=== PATIENT | female | born 1990 | race African-American/Black ===

== ENCOUNTER 2019-05-11 14:53 | Inpatient (IN) | payer OTHER ==
[2019-05-11 18:04] VITALS: BMI 40.3
--- NOTE | 2019-05-11 20:37 | HP ---
CIWA Score Nausea/Vomitin Muscle Tremors: 4-Moderate,w/Arms Extend Anxiety: 4-Mod. Anxious/Guarded Agitation: 4-Moderately Restless Paroxysmal Sweats: 3 Orientation: 0-Oriented Tacttile Disturbances: 3-Moderate Itch/Numb/Burn (ble- numbness) Auditory Disturbances: 0-None Visual Disturbances: 3-Moderate Sensitivity (to light) Headache: 0-None Present CIWA-Ar Total Score: 23 - Admission Criteria OASAS Guidelines: Admission for Medically Managed Detox: Requires at least one of the followin. CIWA greater than 12 2. Seizures within the past 24 hours 3. Delirium tremens within the past 24 hours 4. Hallucinations within the past 24 hours 5. Acute intervention needed for co occurring medical disorder 6. Acute intervention needed for co occurring psychiatric disorder 7. Severe withdrawal that cannot be handled at a lower level of care (continued vomiting, continued diarrhea, abnormal vital signs) requiring intravenous medication and/or fluids 8. Patient presents the following: CIWA greater than 12 Admission Criteria Met: Admission criteria met Admission ROS [facility] Chief Complaint: seeking detox Allergies/Adverse Reactions: Allergies Allergy/AdvReac Type Severity Reaction Status Date / Time No Known Allergies Allergy Verified 05/11/19 18:04 History of Present Illness: HERE FOR ALCOHOL DETOX. THIS IS CLIENT FIRST ADMISSION. CLIENT IS REFERRED BY [facility] AFTER PRESENTING THERE FOR DETOX WITH C/O WITHDRAWAL SX'S AND DEPRESSION. DENIES SI. REPORTS DAILY ALCOHOL INTAKE. DENIES EYE CASHIER PAYMENTS RECEIVED, + BLACK OUTS, DENIES SEIZURES, +AUDITORY HALLUCINATIONS WHEN DRINKING. LAST INTAKE 1 DAY AGO. LONGEST CLEAN 1 YEAR. DENIES ANY SIGNIFICANT PERIOD OF CLEAN TIME IN THE PAST YEAR. LIVES WITH FAMILY, PUBLIC ASSISTANCE, DENIES LEGALS . Exam Limitations: No Limitations - Ebola screening Have you traveled outside of the country in the last 21 days: No Have you had contact with anyone from an Ebola affected area: No Have you been sick,other than usual withdrawal symptoms: No Do you have a fever: No - Review of Systems Constitutional: Chills, Loss of Appetite, Changes in sleep (UNABLE TO FALL/STAY ASLEEP) EENT: reports: Dental Problems (BROKEN TEETH/ MISSING TEETH) Respiratory: reports: SOB with Exertion Cardiac: reports: No Symptoms Reported GI: reports: Nausea, Poor Appetite, Poor Fluid Intake, Vomiting : reports: No Symptoms Reported Musculoskeletal: reports: Back Pain (CHRONIC) Integumentary: reports: No Symptoms Reported Neuro: reports: Other (BLACK OUTS) Endocrine: reports: No Symptoms Reported Hematology: reports: Anemia (HX) Psychiatric: reports: Orientated x3, Anxious, Depressed (DENIES SI/HI) Other Systems: Reviewed and Negative Patient History - Patient Medical History Hx Anemia: Yes Hx Asthma: Yes Hx Chronic Obstructive Pulmonary Disease (COPD): No Hx Cancer: No Hx Cardiac Disorders: No Hx Congestive Heart Failure: No Hx Hypertension: No Hx Hypercholesterolemia: No Hx Pacemaker: No HX Cerebrovascular Accident: No Hx Seizures: No Hx Diabetes: No Hx Gastrointestinal Disorders: No Hx Liver Disease: No Hx Genitourinary Disorders: No Hx Sexually Transmitted Disorders: Yes (HPV) Hx Renal Disease (ESRD): No Hx Thyroid Disease: No Hx Human Immunodeficiency Virus (HIV): No Hx Hepatitis C: No Hx Depression: Yes Hx Suicide Attempt: No Hx Bipolar Disorder: No Hx Schizophrenia: No Other Medical History: ANXIETY - Patient Surgical History Past Surgical History: Yes Hx Cholecystectomy: Yes (2013) Other Surgical History: 2002 TONSILLECTOMY AND ADENOIDECTOMY Anesthesia Reaction: No - PPD History Previous Implant?: Yes Documented Results: Negative w/proof Implanted On Prior R Admission?: No PPD to be Administered?: Yes - Reproductive History Patient is a Female of Child Bearing Age (11 -55 yrs old): Yes LMP comment: 05/10/2019 Patient : No (NEG =[facility]) - Smoking Cessation Smoking history: Current every day smoker Have you smoked in the past 12 months: Yes Aproximately how many cigarettes per day: 8 Cigars Per Day: 0 Hx Chewing Tobacco Use: No Initiated information on smoking cessation: Yes 'Breaking Loose' booklet given: 05/11/19 - Substance & Tx. History Hx Alcohol Use: Yes Hx Substance Use: Yes Substance Use Type: Alcohol, Cocaine Hx Substance Use Treatment: Yes (DOES NOT RECALL) - Substances abused Alcohol Substance route: Oral Frequency: 3-6 times per week Amount used: 32 OZ OF VODKA Age of first use: 11 Date of last use: 05/10/19 Cocaine Other (specify): sniff Frequency: 1-2 times per week Amount used: 3 bags Age of first use: 28 Date of last use: 05/09/19 Admission Physical Exam BHS - Vital Signs Vital Signs: Vital Signs - 24 hr 05/11/19 17:57 Temperature 99 F Pulse Rate 103 H Respiratory 19 Rate Blood Pressure 149/98 - Physical General Appearance: Yes: Moderate Distress, Obese, Anxious HEENTM: Yes: EOMI, Normocephalic, Normal Voice, ALVIN, Pharynx Normal Respiratory: Yes: Chest Non-Tender, Decreased Breath Sounds, No Respiratory Distress, No Accessory Muscle Use Neck: Yes: No masses,lesions,Nodules, Supple, Trachea in good position Breast: Yes: Breasts Symetrical, No Discharge Cardiology: Yes: Regular Rhythm, Regular Rate, S1, S2 Abdominal: Yes: Non Tender, Soft, Increased Bowel Sounds, Protuberent Genitourinary: Yes: Within Normal Limits Back: Yes: Normal Inspection Musculoskeletal: Yes: Gait Steady, Back pain (INTERMITTENT), Joint Stiffness ( KNEES) Extremities: Yes: Normal Capillary Refill, Normal Range of Motion, Non-Tender Neurological: Yes: Fully Oriented, Alert, Motor Strength 5/5, Numbness (C/O TO FEET), Depressed Affect Integumentary: Yes: Dry, Warm Lymphatic: Yes: Within Normal Limits - Diagnostic (1) Alcohol dependence with withdrawal, uncomplicated Current Visit: Yes Status: Acute (2) Cocaine dependence, uncomplicated Current Visit: Yes Status: Chronic (3) Nicotine dependence Current Visit: Yes Status: Chronic Qualifiers: Nicotine product type: cigarettes Substance use status: uncomplicated Qualified Code(s): F17.210 - Nicotine dependence, cigarettes, uncomplicated (4) History of asthma Current Visit: Yes Status: Chronic (5) History of anemia Current Visit: Yes Status: Chronic (6) At risk for dehydration due to poor fluid intake Current Visit: Yes Status: Acute (7) Depressed affect Current Visit: Yes Status: Acute (8) Mental health disorder Current Visit: Yes Status: Chronic (9) Non compliance w medication regimen Current Visit: Yes Status: Suspected (10) Skin turgor poor Current Visit: Yes Status: Acute (11) Elevated BP without diagnosis of hypertension Current Visit: Yes Status: Acute Cleared for Admission S - Detox or Rehab [facility] Level of Care: Medically Managed Detox Regimen/Protocol: Librium Claeared for Rehab Admission: No Breathalyzer - Breathalyzer Breathalyzer: 0 Urine Drug Screen - Test Device Lot number: [id number] Expiration date: 12/21/20 - Control Is test valid?: Yes - Results Drug screen NEGATIVE: No Urine drug screen results: SHAUN-Cocaine Inpatient Rehab Admission - Rehab Decision to Admit Inpatient rehab admission?: No
[2019-05-11] MEDS ORDERED: MENTHOL/PHENOL 1 EACH UD MM PRN (20:44)
[2019-05-11] MEDS ORDERED: ACETAMINOPHEN 325 MG TABLET (FP) PO PRN ×2 (20:44)
[2019-05-11] MEDS ORDERED: MAG HYDROX/AL HYDROX/SIMETH 30 ML UNIT-DOSE CUP PO PRN (20:44)
[2019-05-11] MEDS ORDERED: NICOTINE POLACRILEX 2 MG GUM BUC PRN (20:44)
[2019-05-11] MEDS ORDERED: MAGNESIUM CITRATE 300 ML BOTTLE PO PRN (20:44)
[2019-05-11] MEDS ORDERED: ONDANSETRON *ODT* 4 MG TABLET SL PRN (20:44)
[2019-05-11] MEDS ORDERED: BISMUTH SUBSALICYLATE 524 MG/30 ML UD PO PRN (20:44)
[2019-05-11] MEDS ORDERED: MAGNESIUM HYDROX 2400MG/30ML ORAL SUSPENSION 30 ML CUP PO PRN (20:44)
[2019-05-11] MEDS ORDERED: IBUPROFEN 400 MG TABLET (FP) PO PRN (20:44)
[2019-05-11] MEDS ORDERED: guaiFENesin 200 MG/10 ML 10 ML UNIT-DOSE CUPS PO PRN (20:44)
[2019-05-11] MEDS ORDERED: MELATONIN 5 MG TABLETS PO PRN (20:44)
[2019-05-11] MEDS ORDERED: DICYCLOMINE HCL 10 MG CAPSULE PO PRN (20:44)
[2019-05-11] MEDS ORDERED: chlordiazePOXIDE HCL 10 MG CAPSULE PO PRN (20:44)
[2019-05-11] MEDS ORDERED: P-EPHED 60MG/TRIPROLIDI 2.5MG TABLET PO PRN (20:44)
[2019-05-11] MEDS ORDERED: METHOCARBAMOL 500 MG TABLET PO PRN (20:44)
[2019-05-11] MEDS: THIAMINE HCL 100 MG TABLET (FP) PO SCH (22:30)
[2019-05-11] MEDS: chlordiazePOXIDE HCL 25 MG CAPSULE PO SCH (22:30)
[2019-05-12] MEDS: chlordiazePOXIDE HCL 25 MG CAPSULE PO SCH ×3 (05:50→22:35)
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
[2019-05-12] MEDS: NICOTINE 14 MG/24 HOURS TOPICAL PATCH TD SCH (09:57)
[2019-05-12] MEDS: PRENATAL VITAMINS W/ FOLIC ACID TABLET (FP) PO SCH (09:57)
[2019-05-12] MEDS: hydrOXYzine PAMOATE 25 MG CAPSULE (FP) PO PRN ×2 (09:57→20:11)
[2019-05-12 10:54] LABS: HEMATOCRIT 33.5 % (32.4-45.2); HEMOGLOBIN 10.3 GM/dL (10.7-15.3); MCHC 30.6 g/dl (32.0-36.0); PLATELET COUNT 307 K/MM3 (134-434); RBC 4.65 M/mm3 (3.60-5.2); RDW 19.5 % (11.6-15.6); WHITE BLOOD COUNT 8.4 K/mm3 (4.0-10.0)
[2019-05-12 11:19] LABS: ALBUMIN 3.5 g/dl (3.4-5.0); BILIRUBIN,TOTAL 0.6 mg/dL (0.2-1); BLOOD UREA NITROGEN 8.2 mg/dL (7-18); CALCIUM 8.9 mg/dL (8.5-10.1); POTASSIUM 3.4 mmol/L (3.5-5.1); TOT PROT 7.1 g/dl (6.4-8.2)
--- NOTE | 2019-05-12 13:16 | PN ---
[facility] CIWA - CIWA Score Nausea/Vomitin-Mild Nausea/No Vomiting Muscle Tremors: 3 Anxiety: 3 Agitation: 3 Paroxysmal Sweats: 3 Orientation: 2-Disoriented Date<2 days (to date of the week and day of the month ) Tacttile Disturbances: 1-Very Mild Itch/Numbness Auditory Disturbances: 1-Very Mild Visual Disturbances: 0-None Headache: 1-Very Mild CIWA-Ar Total Score: 18 BHS Progress Note (SOAP) Subjective: doing well with librium detox regimen less irritable mild agitation seen by psychiatrist feeling better resting on bed comfortably Objective: 05/12/19 13:13 Vital Signs Temperature 99.7 F H 05/12/19 09:29 Pulse Rate 97 H 05/12/19 09:29 Respiratory Rate 20 05/12/19 09:29 Blood Pressure 120/80 05/12/19 09:29 O2 Sat by Pulse Oximetry (%) Laboratory Last Values WBC 8.4 K/mm3 (4.0-10.0) 05/12/19 08:00 RBC 4.65 M/mm3 (3.60-5.2) 05/12/19 08:00 Hgb 10.3 GM/dL (10.7-15.3) L 05/12/19 08:00 Hct 33.5 % (32.4-45.2) 05/12/19 08:00 MCV 72.0 fl (80-96) L 05/12/19 08:00 MCH 22.0 pg (25.7-33.7) L 05/12/19 08:00 MCHC 30.6 g/dl (32.0-36.0) L 05/12/19 08:00 RDW 19.5 % (11.6-15.6) H 05/12/19 08:00 Plt Count 307 K/MM3 (134-434) 05/12/19 08:00 MPV 7.0 fl (7.5-11.1) L 05/12/19 08:00 Sodium 141 mmol/L (136-145) 05/12/19 08:00 Potassium 3.4 mmol/L (3.5-5.1) L 05/12/19 08:00 Chloride 102 mmol/L (98-107) 05/12/19 08:00 Carbon Dioxide 29 mmol/L (21-32) 05/12/19 08:00 Anion Gap 10 MMOL/L (8-16) 05/12/19 08:00 BUN 8.2 mg/dL (7-18) 05/12/19 08:00 Creatinine 1.0 mg/dL (0.55-1.3) 05/12/19 08:00 Est GFR (CKD-EPI)AfAm 86.94 05/12/19 08:00 Est GFR (CKD-EPI)NonAf 75.01 05/12/19 08:00 Random Glucose 109 mg/dL (74-106) H 05/12/19 08:00 Calcium 8.9 mg/dL (8.5-10.1) 05/12/19 08:00 Total Bilirubin 0.6 mg/dL (0.2-1) 05/12/19 08:00 AST 23 U/L (15-37) 05/12/19 08:00 ALT 22 U/L (13-61) 05/12/19 08:00 Alkaline Phosphatase 98 U/L (45-117) 05/12/19 08:00 Total Protein 7.1 g/dl (6.4-8.2) 05/12/19 08:00 Albumin 3.5 g/dl (3.4-5.0) 05/12/19 08:00 lab noted 05/12/19 13:16 low K+ begin K+ supplement po od discontinue bentyle Assessment: 05/12/19 13:16 alcohol withdrawal sx Plan: conitnue librium detox regimen
[2019-05-12] MEDS: POTASSIUM CHLORIDE TABS 20 MEQ TABLET.ER (FP) PO SCH (14:06)
[2019-05-12] MEDS: MELATONIN 5 MG TABLETS PO PRN (22:35)
[2019-05-12] MEDS: THIAMINE HCL 100 MG TABLET (FP) PO SCH (22:35)
[2019-05-13] MEDS: chlordiazePOXIDE 5 MG CAPSULE PO SCH ×3 (05:28→21:39)
[2019-05-13] MEDS: PRENATAL VITAMINS W/ FOLIC ACID TABLET (FP) PO SCH (10:34)
[2019-05-13] MEDS: NICOTINE 14 MG/24 HOURS TOPICAL PATCH TD SCH (10:34)
[2019-05-13] MEDS: hydrOXYzine PAMOATE 25 MG CAPSULE (FP) PO PRN (10:34)
[2019-05-13] MEDS: POTASSIUM CHLORIDE TABS 20 MEQ TABLET.ER (FP) PO SCH (10:34)
--- NOTE | 2019-05-13 13:30 | PN ---
[facility] CIWA - CIWA Score Nausea/Vomitin-Mild Nausea/No Vomiting Muscle Tremors: 2 Anxiety: 3 Agitation: 2 Paroxysmal Sweats: 1-Minimal Palms Moist Orientation: 0-Oriented Tacttile Disturbances: 1-Very Mild Itch/Numbness Auditory Disturbances: 1-Very Mild Visual Disturbances: 1-Very Mild Sensitivity Headache: 1-Very Mild CIWA-Ar Total Score: 13 S Progress Note (SOAP) Subjective: doing well with librium detox regimen seen by psychiatrist no medical treatment at this time patient agrees return to [facility] for psychotropic medication therapy Objective: 05/13/19 13:31 Vital Signs Temperature 100.4 F H 05/13/19 13:24 Pulse Rate 64 05/13/19 13:24 Respiratory Rate 18 05/13/19 13:24 Blood Pressure 122/84 05/13/19 13:24 O2 Sat by Pulse Oximetry (%) Laboratory Last Values WBC 8.4 K/mm3 (4.0-10.0) 05/12/19 08:00 RBC 4.65 M/mm3 (3.60-5.2) 05/12/19 08:00 Hgb 10.3 GM/dL (10.7-15.3) L 05/12/19 08:00 Hct 33.5 % (32.4-45.2) 05/12/19 08:00 MCV 72.0 fl (80-96) L 05/12/19 08:00 MCH 22.0 pg (25.7-33.7) L 05/12/19 08:00 MCHC 30.6 g/dl (32.0-36.0) L 05/12/19 08:00 RDW 19.5 % (11.6-15.6) H 05/12/19 08:00 Plt Count 307 K/MM3 (134-434) 05/12/19 08:00 MPV 7.0 fl (7.5-11.1) L 05/12/19 08:00 Sodium 141 mmol/L (136-145) 05/12/19 08:00 Potassium 3.4 mmol/L (3.5-5.1) L 05/12/19 08:00 Chloride 102 mmol/L (98-107) 05/12/19 08:00 Carbon Dioxide 29 mmol/L (21-32) 05/12/19 08:00 Anion Gap 10 MMOL/L (8-16) 05/12/19 08:00 BUN 8.2 mg/dL (7-18) 05/12/19 08:00 Creatinine 1.0 mg/dL (0.55-1.3) 05/12/19 08:00 Est GFR (CKD-EPI)AfAm 86.94 05/12/19 08:00 Est GFR (CKD-EPI)NonAf 75.01 05/12/19 08:00 Random Glucose 109 mg/dL (74-106) H 05/12/19 08:00 Calcium 8.9 mg/dL (8.5-10.1) 05/12/19 08:00 Total Bilirubin 0.6 mg/dL (0.2-1) 05/12/19 08:00 AST 23 U/L (15-37) 05/12/19 08:00 ALT 22 U/L (13-61) 05/12/19 08:00 Alkaline Phosphatase 98 U/L (45-117) 05/12/19 08:00 Total Protein 7.1 g/dl (6.4-8.2) 05/12/19 08:00 Albumin 3.5 g/dl (3.4-5.0) 05/12/19 08:00 RPR Titer Nonreactive (NONREACTIVE) 05/12/19 08:00 lab noted 05/13/19 13:31 low K+ continue K+ supplement patient agrees to follow up with [facility] for K+ level 05/13/19 13:32 Assessment: 05/13/19 13:32 alcohol withdrawal sx Plan: continue librium detox regimen
[2019-05-13] MEDS: THIAMINE HCL 100 MG TABLET (FP) PO SCH (21:39)
[2019-05-13] MEDS: MELATONIN 5 MG TABLETS PO PRN (21:40)
[2019-05-14] MEDS ORDERED: chlordiazePOXIDE HCL 10 MG CAPSULE PO PRN
[2019-05-14] MEDS ORDERED: chlordiazePOXIDE HCL 10 MG CAPSULE PO SCH (05:00)
[2019-05-14 09:13] VITALS: BP 116/81; PULSE 105; TEMP 98.1
[2019-05-14] MEDS: POTASSIUM CHLORIDE TABS 20 MEQ TABLET.ER (FP) PO SCH (09:27)
[2019-05-14] MEDS: hydrOXYzine PAMOATE 25 MG CAPSULE (FP) PO PRN (09:27)
[2019-05-14] MEDS: PRENATAL VITAMINS W/ FOLIC ACID TABLET (FP) PO SCH (09:27)
[2019-05-14] MEDS: NICOTINE 14 MG/24 HOURS TOPICAL PATCH TD SCH (10:42)
--- NOTE | 2019-05-14 13:35 | EKG ---
Test Reason : Blood Pressure : / mmHG Vent. Rate : 081 BPM Atrial Rate : 081 BPM P-R Int : 150 ms QRS Dur : 082 ms QT Int : 382 ms P-R-T Axes : 015 008 049 degrees QTc Int : 443 ms NORMAL SINUS RHYTHM WITH SINUS ARRHYTHMIA MINIMAL VOLTAGE CRITERIA FOR LVH, MAY BE NORMAL VARIANT NONSPECIFIC T WAVE ABNORMALITY ABNORMAL ECG NO PREVIOUS ECGS AVAILABLE Confirmed by MD Lucila, René ([id number]) on 05/14/2019 1:35:14 PM Referred By: DR JACKSON Confirmed By:René Gaytan MD
--- NOTE | 2019-05-14 13:58 | DS ---
[facility] Detox Discharge Summary Admission Date: 05/11/19 Discharge Date: 05/14/19 - History Present History: Alcohol Dependence Additional Comments: 29 years old female admitted on 05/11/19 for alcohol withdrawal sx did well with librium detox regimen no complication through out the detox stay alert oriented x 3 respiratory clear lung bilaterally on auscultation abdomen soft round obese no rebound tenderness extremities full range of motion - Physical Exam Results Vital Signs: Vital Signs Temperature 98.1 F 05/14/19 09:13 Pulse Rate 105 H 05/14/19 09:13 Respiratory Rate 18 05/14/19 09:13 Blood Pressure 116/81 05/14/19 09:13 O2 Sat by Pulse Oximetry (%) Pertinent Admission Physical Exam Findings: alcohol withdrawal sx Laboratory Last Values WBC 8.4 K/mm3 (4.0-10.0) 05/12/19 08:00 RBC 4.65 M/mm3 (3.60-5.2) 05/12/19 08:00 Hgb 10.3 GM/dL (10.7-15.3) L 05/12/19 08:00 Hct 33.5 % (32.4-45.2) 05/12/19 08:00 MCV 72.0 fl (80-96) L 05/12/19 08:00 MCH 22.0 pg (25.7-33.7) L 05/12/19 08:00 MCHC 30.6 g/dl (32.0-36.0) L 05/12/19 08:00 RDW 19.5 % (11.6-15.6) H 05/12/19 08:00 Plt Count 307 K/MM3 (134-434) 05/12/19 08:00 MPV 7.0 fl (7.5-11.1) L 05/12/19 08:00 Sodium 141 mmol/L (136-145) 05/12/19 08:00 Potassium 3.4 mmol/L (3.5-5.1) L 05/12/19 08:00 Chloride 102 mmol/L (98-107) 05/12/19 08:00 Carbon Dioxide 29 mmol/L (21-32) 05/12/19 08:00 Anion Gap 10 MMOL/L (8-16) 05/12/19 08:00 BUN 8.2 mg/dL (7-18) 05/12/19 08:00 Creatinine 1.0 mg/dL (0.55-1.3) 05/12/19 08:00 Est GFR (CKD-EPI)AfAm 86.94 05/12/19 08:00 Est GFR (CKD-EPI)NonAf 75.01 05/12/19 08:00 Random Glucose 109 mg/dL (74-106) H 05/12/19 08:00 Calcium 8.9 mg/dL (8.5-10.1) 05/12/19 08:00 Total Bilirubin 0.6 mg/dL (0.2-1) 05/12/19 08:00 AST 23 U/L (15-37) 05/12/19 08:00 ALT 22 U/L (13-61) 05/12/19 08:00 Alkaline Phosphatase 98 U/L (45-117) 05/12/19 08:00 Total Protein 7.1 g/dl (6.4-8.2) 05/12/19 08:00 Albumin 3.5 g/dl (3.4-5.0) 05/12/19 08:00 POC Urine HCG, Qual Negative 05/11/19 20:36 RPR Titer Nonreactive (NONREACTIVE) 05/12/19 08:00 lab noted patient agrees to bring in medication list and lab report to [facility] for follow up - Treatment Hospital Course: Detox Protocol Followed, Detoxed Safely, Responded well, Discharged Condition Good, Rehab Referral Accepted Patient has Accepted [facility] Ref[facility] - Medication Discharge Medications: Ambulatory Orders NK [No Known Home Medication] 05/11/19 - Diagnosis (1) Alcohol dependence with withdrawal, uncomplicated Status: Acute (2) Substance induced mood disorder Status: Suspected (3) Nicotine dependence Status: Acute Qualifiers: Nicotine product type: cigarettes Substance use status: in withdrawal Qualified Code(s): F17.213 - Nicotine dependence, cigarettes, with withdrawal - AMA Did Patient Leave Against Medical Advice: No CIWA Score - CIWA Score Nausea/Vomitin-No Nausea/No Vomiting Muscle Tremors: 1-None Visible, but [place] Anxiety: 2 Agitation: 1-Slight > Activity Paroxysmal Sweats: 1-Minimal Palms Moist Orientation: 0-Oriented Tacttile Disturbances: 0-None Auditory Disturbances: 1-Very Mild Visual Disturbances: 1-Very Mild Sensitivity Headache: 1-Very Mild CIWA-Ar Total Score: 8
[2019-05-15] MEDS ORDERED: chlordiazePOXIDE HCL 10 MG CAPSULE PO ONE (05:00)
== END 2019-05-14 09:56 | disposition home or self-care (01) | DRG 774 ==
LOC: YASAS 14:53 → Y6N 21:03 → UNDOADMIN 21:03 → Y3N 21:11
PROVIDERS: ADMIT Allergy & Immunology; ATTEND Allergy & Immunology
PROC: HZ2ZZZZ Detoxification Services for Substance Abuse Treatment (ICD-10-PCS; principal; 2019-05-11)
DX: F10.230 Alcohol dependence with withdrawal, uncomplicated (principal); F14.20 Cocaine dependence, uncomplicated; F17.213 Nicotine dependence, cigarettes, with withdrawal; F19.24 Other psychoactive substance dependence with psychoactive substance-induced mood disorder; F19.282 Other psychoactive substance dependence with psychoactive substance-induced sleep disorder; F39 Unspecified mood [affective] disorder; D64.9 Anemia, unspecified; J45.909 Unspecified asthma, uncomplicated; R63.8 Other symptoms and signs concerning food and fluid intake; R03.0 Elevated blood-pressure reading, without diagnosis of hypertension; E66.9 Obesity, unspecified; Z68.41 Body mass index [BMI] 40.0-44.9, adult; Z87.42 Personal history of other diseases of the female genital tract; Z86.19 Personal history of other infectious and parasitic diseases; Z91.14 Patient's other noncompliance with medication regimen
CPT/HCPCS: 36415; 80053; 81025; 85027; 86593; 93005; 93010